=== PATIENT | male | born 1940 | race Caucasian/White ===

== ENCOUNTER 2016-09-05 14:56 | Emergency (ER) | payer MEDICARE, BC ==
[~2016-09-05] VITALS: Ht 170.2 cm; Wt 52.5 kg
[~2016-09-05 14:56] MED LIST: ASPIRIN 81M81 MG/TA2 PO; ASPIRIN E.C. 8181 MG PO; CELEXA 20MG20 MG/TAB PO; EXELON4.5 MG PO; EXELON9.5 MG/24 TD; FLOMAX 0.40.4 MG/CAP PO; IMDUR 30MG30 MG/TAB PO; NAMENDA 10MG TA10 MG PO; NAMENDA XR 21MG PO; NAMENDA XR 28MG PO; NIACIN500 M3 PO; NITROQUICK0.4 MG SL; NITROSTAT0.4 MG/TAB SL; PLAVIX 75MG TAB75 MG PO; PRINIVIL10 MG PO; SINEMET 25/101 UDTAB PO; TENORMIN 2525 MG/TAB PO; ZESTRIL 5MG5 MG PO; ZOCOR 40MG40 MG PO; [UNRECOGNIZED DRUG - OTHER] IM
[2016-09-05 14:59] VITALS: TEMP 98.3
[2016-09-05] MEDS ORDERED: IMDUR 30MG30 MG/TAB PO (15:25)
[2016-09-05] MEDS ORDERED: MULTI VITAMINS1 TAB PO (15:29)
[2016-09-05] MEDS ORDERED: NITROSTAT0.4 MG/TAB SL (15:29)
[2016-09-05] MEDS ORDERED: NAMZARIC1 ECC PO (15:29)
[2016-09-05 15:53] LABS: BASO # 0.1 (0.0-0.2); BASO % 1.1 % (0.0-2.0); EOS # 0.3 (0.0-0.7); GRAN # 3.3 (1.4-6.5); GRAN % 61.8 % (42.2-75.2); HEMATOCRIT 39.9 % (42.0-52.0); HEMOGLOBIN 13.4 g/dl (13.5-18.0); LYMPH # 1.2 (1.2-3.4); LYMPH % 22.9 % (20.0-51.0); MEAN CELL VOLUME 89 fl (80.0-100.0); MEAN CORPUSCULAR HEMOGLOBIN 30 pg (27.0-31.0); MEAN CORPUSCULAR HGB CONC 34 g/dl (33.0-37.0); MEAN PLATELET VOLUME 10.2 fl (7.4-10.4); MONO # 0.5 (0.1-0.6); PLATELET COUNT 233 K/mm3 (130-400); REDCELL DISTRIBUTION WIDTH-CV 13.2 % (11.5-14.5); WHITE BLOOD COUNT 5.3 K/mm3 (4.8-10.8)
[2016-09-05 15:59] LABS: ADJUSTED CALCIUM 9.5 mg/dL (8.4-10.2); ALANINE AMINOTRANSFERASE 35 U/L (21-72); ALBUMIN 3.6 gm/dL (3.5-5.0); ALKALINE PHOSPHATASE 44 U/L (50-136); ANION GAP 7 mmol/L (7-16); BILIRUBIN,TOTAL 0.9 mg/dL (0.0-1.0); BLOOD UREA NITROGEN 16 mg/dL (9-20); CALCIUM 9.2 mg/dL (8.4-10.2); CARBON DIOXIDE 30 mmol/L (22-30); CHLORIDE 102 mmol/L (98-107); CREATININE, serum 0.97 mg/dL (0.66-1.25); GLUCOSE 84 mg/dL (74-106); POTASSIUM 4.3 mmol/L (3.4-5.0); SODIUM 140 mmol/L (137-145); TOTAL PROTEIN 6.9 gm/dL (6.4-8.2)
[2016-09-05 16:11] LABS: PH 5 (5-8); SQUAMOUS EPITHELIAL None Seen /hpf; URINE APPEARANCE Clear; URINE BACTERIA None Seen /hpf; URINE BILIRUBIN Negative (NEGATIVE); URINE BLOOD Negative (NEGATIVE); URINE COLOR Yellow; URINE GLUCOSE Negative (NEGATIVE); URINE KETONE Trace (NEGATIVE); URINE UROBILINOGEN >=4.0 mg/dL (NEGATIVE); URINE WBC 0-2 /hpf
[2016-09-05 16:32] LABS: B-TYPE NATRIURETIC PEPTIDE 473 pg/mL (0-450)
[2016-09-05 16:33] LABS: TROPONIN-I < 0.012 ng/mL (0.000-0.034)
[2016-09-05 17:37] VITALS: BP 111/56; PULSE 60
== END 2016-09-05 17:45 | disposition home or self-care (01) ==
LOC: COL.ER 14:56
PROVIDERS: Emergency Medicine
DX: R53.1 Weakness (principal); I10 Essential (primary) hypertension; F03.90 Unspecified dementia, unspecified severity, without behavioral disturbance, psychotic disturbance, mood disturbance, and anxiety; Z87.891 Personal history of nicotine dependence; Z95.0 Presence of cardiac pacemaker; I25.10 Atherosclerotic heart disease of native coronary artery without angina pectoris; Z95.1 Presence of aortocoronary bypass graft; Z95.5 Presence of coronary angioplasty implant and graft
CPT/HCPCS: J7030

== ENCOUNTER → 2016-11-09 | Outpatient (CLI) | payer MEDICARE, BC ==
[~2016-11-09] MED LIST changes: +MULTI VITAMINS1 TAB PO; +NAMZARIC1 ECC PO
[2016-11-09 19:29] LABS: HEMATOCRIT 45.3 % (42.0-52.0); MEAN CELL VOLUME 90 fl (80.0-100.0); MEAN CORPUSCULAR HEMOGLOBIN 30 pg (27.0-31.0); MEAN CORPUSCULAR HGB CONC 33 g/dl (33.0-37.0); MEAN PLATELET VOLUME 11.2 fl (7.4-10.4); PLATELET COUNT 187 K/mm3 (130-400); RED BLOOD COUNT 5.02 M/mm3 (4.20-5.60); REDCELL DISTRIBUTION WIDTH-CV 14.3 % (11.5-14.5); WHITE BLOOD COUNT 5.5 K/mm3 (4.8-10.8)
[2016-11-09 20:06] LABS: PROTHROMBIN TIME 10.6 SECONDS (9.7-12.8)
== END ==
LOC: ZLAB.STJ 15:19
PROVIDERS: Family Medicine
DX: M79.81 Nontraumatic hematoma of soft tissue (principal)

== ENCOUNTER → 2016-12-03 | Outpatient (CLI) | payer MEDICARE, BC | LOC: ZCOL.LAB 13:55 | DX: N39.0 Urinary tract infection, site not specified (principal); Z02.89 Encounter for other administrative examinations ==

== ENCOUNTER → 2016-12-11 | Outpatient (CLI) | payer MEDICARE, BC ==
[2016-12-11 10:52] LABS: PH 5 (5-8); SQUAMOUS EPITHELIAL None Seen /hpf; URINE APPEARANCE Turbid; URINE BACTERIA None Seen /hpf; URINE BILIRUBIN Negative (NEGATIVE); URINE BLOOD 2+ (NEGATIVE); URINE COLOR Amber; URINE GLUCOSE Negative (NEGATIVE); URINE KETONE Negative (NEGATIVE); URINE RBC 0-2 /hpf
== END ==
LOC: ZLAB.STJ 10:12
PROVIDERS: Family Medicine
DX: N39.0 Urinary tract infection, site not specified (principal); R32 Unspecified urinary incontinence

== ENCOUNTER → 2016-12-25 | Outpatient (CLI) | payer MEDICARE, BC ==
[2016-12-25 16:04] LABS: PH 5 (5-8); SQUAMOUS EPITHELIAL None Seen /hpf; URINE APPEARANCE Clear; URINE BACTERIA None Seen /hpf; URINE BILIRUBIN Negative (NEGATIVE); URINE BLOOD 2+ (NEGATIVE); URINE COLOR Yellow; URINE GLUCOSE Negative (NEGATIVE); URINE KETONE Trace (NEGATIVE); URINE UROBILINOGEN Negative (NEGATIVE); URINE WBC 0-2 /hpf
== END ==
LOC: ZLAB.STJ 14:29
PROVIDERS: Nurse Practitioner
DX: N39.0 Urinary tract infection, site not specified (principal)